=== PATIENT | male | born 1975 | race African-American/Black ===

== ENCOUNTER 2017-10-07 12:34 | Inpatient (IN) | payer OTHER ==
[~2017-10-07] VITALS: Ht 185.4 cm; Wt 143.8 kg
--- NOTE | 2017-10-07 12:40 | NUR ---
BBPA FROM [facility]: LEFT FOOT WOUND EVAL. NAD NOTED, VSS, RESP AND EVEN UNLABORED, SKIN DRY AND WARM, AT BS.
--- NOTE | 2017-10-07 12:46 | NUR ---
EKG DUPLICATE ORDER.
[2017-10-07 13:40] LABS: BASOPHILS % (AUTO) 0.4 % (0.0-2.0); EOSINOPHILS # (AUTO) 0.6 /CMM (0.0-0.7); EOSINOPHILS % (AUTO) 9.6 % (0.0-6.0); HEMATOCRIT 38 % (39-51); HEMOGLOBIN 11.7 g/dL (13.5-17.5); LYMPHOCYTES # (AUTO) 2.4 /CMM (0.8-4.8); LYMPHOCYTES % (AUTO) 36.8 % (20.0-44.0); MEAN CORPUSCULAR HEMOGLOBIN 24 PG (26.0-33.0); MEAN CORPUSCULAR HGB CONC 31 g/dl (31.0-36.0); MEAN CORPUSCULAR VOLUME 78 fL (80-96); MONOCYTES # (AUTO) 0.7 /CMM (0.1-1.30); MONOCYTES % (AUTO) 11.5 % (2.0-12.0); NEUTROPHILS # (AUTO) 2.8 /CMM (1.8-8.9); NEUTROPHILS % (AUTO) 41.7 % (43.0-81.0); PLATELET COUNT (AUTO) 286 /CMM (150-450); RDW COEFFICIENT OF VARIATION 13.9 (11.5-15.0); RED BLOOD CELL COUNT(AUTO) 4.88 MIL/uL (4.5-6.0); WHITE BLOOD COUNT (AUTO) 6.5 K/uL (4.3-11.0)
[2017-10-07 13:51] LABS: CALCIUM, SERUM 8.7 mg/dL (8.5-10.1); CARBON DIOXIDE 31 mmol/L (21-32); CHLORIDE 104 mmol/L (98-107); CREATININE 0.9 mg/dL (0.6-1.3); GLUCOSE 89 mg/dL (74-106); POTASSIUM 3.6 mmol/L (3.5-5.1); SODIUM SERUM 139 mmol/L (136-145); UREA NITROGEN, BLOOD 10 mg/dL (7-18)
[2017-10-07 13:55] LABS: INR 1.12 (0.87-1.13); PROTHROMBIN TIME 11.6 SECS (9.5-12.7)
[2017-10-07 13:59] LABS: TROPONIN I < 0.017 ng/mL (0.00-0.056)
[2017-10-07] MEDS ORDERED: FURO20TA4 PO (14:02)
[2017-10-07] MEDS ORDERED: METO25TA3 PO (14:02)
[2017-10-07] MEDS ORDERED: LITH300T PO (14:02)
[2017-10-07] MEDS ORDERED: TIMO5DRO4 EACHEYE (14:02)
[2017-10-07] MEDS ORDERED: HYDR-548 PO (14:02)
[2017-10-07] MEDS ORDERED: ALBU18HF2 IH (14:02)
[2017-10-07] MEDS ORDERED: HYDR-3976 PO (14:02)
[2017-10-07] MEDS ORDERED: RIVA10TA PO (14:02)
[2017-10-07] MEDS ORDERED: ATOR10TA PO (14:02)
[2017-10-07] MEDS ORDERED: FERR-58 PO (14:02)
[2017-10-07] MEDS ORDERED: FLUT16SP NS (14:02)
[2017-10-07] MEDS ORDERED: GABA-534 PO (14:02)
[2017-10-07] MEDS ORDERED: ESCI10TA PO (14:02)
[2017-10-07] MEDS ORDERED: LEVE250T2 PO (14:02)
[2017-10-07] MEDS ORDERED: PHEN100C4 PO (14:02)
[2017-10-07] MEDS ORDERED: NYST15OI TP (14:02)
[2017-10-07] MEDS ORDERED: DIPH25CA46 PO (14:02)
[2017-10-07] MEDS ORDERED: DORZ10DR8 EACHEYE (14:02)
[2017-10-07] MEDS ORDERED: LATA2.5D7 EACHEYE (14:02)
[2017-10-07] MEDS ORDERED: RISP0.253 PO (14:02)
[2017-10-07] MEDS ORDERED: BIMA2.5D5 EACHEYE (14:02)
[2017-10-07] MEDS ORDERED: MIRT45TA5 PO (14:02)
[2017-10-07] MEDS ORDERED: CODE118S2 PO (14:02)
[2017-10-07 14:03] LABS: B-TYPE NATRIURETIC PEPTIDE 19 PG/ML (0-125)
--- NOTE | 2017-10-07 14:15 | NUR ---
REPORT GIVEN TO DERICK.
--- NOTE | 2017-10-07 14:20 | NUR ---
RECEIVED REPORT FROM ER
[2017-10-07] MEDS ORDERED: HYDROMORPHONE INJ 2 MG/ML DISP.SYRIN IV PRN (14:30)
[2017-10-07] MEDS ORDERED: ENOXAPARIN SODIUM 40 MG/0.4 ML DISP.SYRIN SQ SCH (14:30)
[2017-10-07] MEDS ORDERED: Z GUARD REMEDY 2 OZ OINT TP PRN (14:30)
[2017-10-07] MEDS ORDERED: ZOLPIDEM TARTRATE 5 MG TABLET PO PRN (14:30)
[2017-10-07] MEDS ORDERED: CODEINE/PROMETHAZINE HCL 5 ML UDC PO PRN (14:30)
[2017-10-07] MEDS ORDERED: MAGNESIUM HYDROXIDE 30 ML UDC PO PRN (14:30)
[2017-10-07] MEDS ORDERED: ONDANSETRON HCL/PF 4 MG/2 ML VIAL IVP PRN (14:30)
[2017-10-07] MEDS ORDERED: ACETAMINOPHEN 325 MG TABLET PO PRN (14:30)
[2017-10-07] MEDS ORDERED: MAG HYDROX/AL HYDROX/SIMETH 30 ML UDC PO PRN (14:30)
[2017-10-07 14:57] VITALS: BP 127/79
--- NOTE | 2017-10-07 15:00 | NUR ---
PATIENT ARRIVED TO UNIT. WILL ASSESS AND MONITOR PATIENT
[2017-10-07 16:00] VITALS: BP 127/79
--- NOTE | 2017-10-07 16:00 | NUR ---
PATIENT VERBALIZE SUICIDAL THOUGHTS. ADY HERNANDEZ AND CHARGE NURSE MADE AWARE. PSYCH CONSULT ORDERED. SITTER AT BEDSIDE FOR SAFETY
[2017-10-07] MEDS: DORZOLAMIDE OPTH 2% 10 ML BOTTLE EACHEYE SCH ×2 (17:00→17:49)
[2017-10-07] MEDS ORDERED: RIVAROXABAN 10 MG TABLET PO SCH (17:00)
[2017-10-07] MEDS: NYSTATIN OINT 100000 UNIT/G 15 GM TUBE TP SCH (17:00)
--- NOTE | 2017-10-07 17:30 | NUR ---
PHARMACY NOTIFIED THAT WE DON'T HAVE ENOUGH RISPERDAL IN OMNICELL. PHARMACY WILL REFILL
--- NOTE | 2017-10-07 17:30 | NUR ---
RN ADMITTING NOTES PATIENT ARRIVED TO UNIT FROM EMERGENCY ROOM. VITAL SIGNS ARE STABLE. NO SIGNS AND SYMPTOMS OF DISTRESS. PATIENT IS ALERT AND ORIENTED TO NAME PLACE AND TIME. SUICIDAL WITH NO PLAN. PAIN LEVEL 8/10 IN CHEST AND BACK. MIDLINE IN INTACT AND PATENT. BED IN LOW POSITION, LOCKED AND TWO SIDE RAILS ARE UP. CALL LIGHT WITHIN REACH FOR SAFETY. WILL CONTINUE TO ASSESS AND MONITOR PATIENT
[2017-10-07] MEDS: TIMOLOL 0.5% SOLN OPHTH 5 ML BOTTLE EACHEYE SCH (17:42)
[2017-10-07] MEDS: diphenhydrAMINE HCL 25 MG CAPSULE PO SCH (17:43)
[2017-10-07] MEDS: LITHIUM CARBONATE (300 MG CAP) 300 MG CAPSULE PO SCH (17:43)
[2017-10-07] MEDS: FERROUS SULFATE (325 MG) 325 MG/TAB TABLET PO SCH (17:43)
[2017-10-07] MEDS: FUROSEMIDE 20 MG TABLET PO SCH (17:43)
[2017-10-07] MEDS: GABAPENTIN 300 MG CAPSULE PO SCH (17:44)
--- NOTE | 2017-10-07 17:45 | NUR ---
PATIENT SUICIDAL PLAN IS TO :SLAM MY HEAD AGAINST THE GLASS AND CUT MY THROAT". CHARGE NURSE MADE AWARE. PSYCH CONSULT PENDING. SITTER AT BEDSIDE
[2017-10-07] MEDS: HYDROCODONE/APAP 5/325MG 1 EACH TABLET PO PRN (17:54)
[2017-10-07] MEDS ORDERED: risperiDONE 0.25 MG TABLET PO SCH (18:00)
[2017-10-07] MEDS ORDERED: MIRTAZAPINE 45 MG TABLET PO SCH (18:00)
--- NOTE | 2017-10-07 18:57 | NUR ---
RN CLOSING NOTES PATIENT IS ALERT AND ORIENTED TO NAME PLACE AND TIME. NO SIGNS AND SYMPTOMS OF DISTRESS. STABLE DURING MY SHIFT. ALL PATIENT CARE ANTICIPATED AND ATTENDED. MIDLINE IN INTACT AND PATENT. BED IN LOW POSITION, LOCKED AND TWO SIDE RAILS ARE UP. CALL LIGHT WITHIN REACH FOR SAFETY. WILL ENDORSER TO PATIENT FINANCIAL SPECIALIST NURSE.
[2017-10-07] MEDS ORDERED: risperiDONE 1 MG TABLET PO SCH ×2 (19:00)
[2017-10-07] MEDS ORDERED: ALBUTEROL FS 2.5 MG/0.5 ML VIAL.NEB NEB PRN (19:30)
--- NOTE | 2017-10-07 19:30 | NUR ---
RN OPENING NOTES PATIENT IS SLEEPING IN THE BED, EASY TO AROUSE, ALERT AND ORIENTED X3. VS STABLE. NO SOB NOTED. IV ACCESS ON MIDLINE DOLORES HL PATENT AND INTACT, FLUSHED WELL NS. BED IN LOW AND LOCKED POSITION POSITION. SIDE RAILS X2. CALL LIGHT WITHIN EASY REACH. WILL CONTINUE TO MONITOR AND ASSESS DURING THE SHIFT.
[2017-10-07 20:00] VITALS: BP 114/60
[2017-10-07] MEDS ORDERED: BIMATOPROST 2.5 ML DROPS OP SCH (22:00)
[2017-10-07] MEDS ORDERED: PHENYTOIN EXTENDED RELEASE 100 MG CAPSULE PO SCH (22:00)
[2017-10-07] MEDS ORDERED: LATANOPROST EYE DROP 0.005% 2.5 ML BOTTLE EACHEYE SCH (22:00)
[2017-10-07] MEDS ORDERED: ATORVASTATIN 10 MG TABLET PO SCH (22:00)
[2017-10-08] VITALS: BP 120/60
[2017-10-08 04:00] VITALS: BP 115/60
[2017-10-08 04:37] VITALS: BP 115/60
--- NOTE | 2017-10-08 06:53 | NUR ---
RN CLOSING NOTES PATIENT IS SLEEPING IN THE BED, EASY TO AROUSE, ALERT AND ORIENTED X3. VS STABLE. RESPIRATIONS EVEN AND UNLABORED. NO SOB NOTED. IV ACCESS ON MIDLINE DOLORES HL PATENT AND INTACT, FLUSHED WELL WITH NS. ALL NEEDS ARE MET AND MEDICATIONS GIVEN PER MD ORDER. BED IN LOW AND LOCKED POSITION POSITION. SIDE RAILS X2. CALL LIGHT WITHIN EASY REACH. WILL ENDORSE TO RN DAY SHIFT FOR CONTINUITY OF CARE.
--- NOTE | 2017-10-08 07:22 | NUR ---
RN OPEN NOTES RECEIVED REPORT FROM LITHOGRAPH OPERATOR NURSE. PATIENT IS IN BED, AWAKE. ALERT AND ORIENTED TO NAME, PLACE AND TIME. NO SIGN AND SYMPTOMS OF DISTRESS. BED IN LOW POSITION, LOCKED AND TWO SIDE RAILS ARE UP. CALL LIGHT WITHIN REACH FOR SAFETY. WILL CONTINUE TO MONITOR AND ASSESS PATIENT THROUGH OUT MY SHIFT
[2017-10-08 07:48] LABS: BASOPHILS % (AUTO) 0.4 % (0.0-2.0); EOSINOPHILS # (AUTO) 0.6 /CMM (0.0-0.7); EOSINOPHILS % (AUTO) 9.4 % (0.0-6.0); HEMATOCRIT 38 % (39-51); LYMPHOCYTES % (AUTO) 31.8 % (20.0-44.0); MEAN CORPUSCULAR HEMOGLOBIN 24 PG (26.0-33.0); MEAN CORPUSCULAR HGB CONC 31 g/dl (31.0-36.0); MEAN CORPUSCULAR VOLUME 78 fL (80-96); MONOCYTES # (AUTO) 0.6 /CMM (0.1-1.30); MONOCYTES % (AUTO) 9.7 % (2.0-12.0); NEUTROPHILS % (AUTO) 48.7 % (43.0-81.0); PLATELET COUNT (AUTO) 253 /CMM (150-450); RDW COEFFICIENT OF VARIATION 14.9 (11.5-15.0); WHITE BLOOD COUNT (AUTO) 6.2 K/uL (4.3-11.0)
[2017-10-08 08:00] VITALS: BP 117/61
[2017-10-08] MEDS: TIMOLOL 0.5% SOLN OPHTH 5 ML BOTTLE EACHEYE SCH (08:53)
[2017-10-08] MEDS: DORZOLAMIDE OPTH 2% 10 ML BOTTLE EACHEYE SCH ×2 (08:54→12:05)
[2017-10-08] MEDS: diphenhydrAMINE HCL 25 MG CAPSULE PO SCH ×2 (08:55→12:05)
[2017-10-08] MEDS: GABAPENTIN 300 MG CAPSULE PO SCH ×2 (08:56→12:05)
[2017-10-08] MEDS: LITHIUM CARBONATE (300 MG CAP) 300 MG CAPSULE PO SCH ×2 (08:56→12:05)
[2017-10-08] MEDS: FUROSEMIDE 20 MG TABLET PO SCH (08:56)
[2017-10-08] MEDS: FERROUS SULFATE (325 MG) 325 MG/TAB TABLET PO SCH ×2 (08:56→12:05)
[2017-10-08] MEDS: NYSTATIN OINT 100000 UNIT/G 15 GM TUBE TP SCH ×2 (08:57→12:05)
[2017-10-08] MEDS ORDERED: METOPROLOL SUCCINATE 25 MG TAB.SR.24H PO SCH (09:00)
[2017-10-08] MEDS ORDERED: ESCITALOPRAM OXALATE (10 MG) 10 MG TABLET PO SCH (09:00)
[2017-10-08] MEDS ORDERED: LEVETIRACETAM (250 MG) 250 MG TABLET PO SCH (09:00)
[2017-10-08] MEDS ORDERED: FLUTICASONE PROPIONATE 16 GM BOTTLE NS SCH (09:00)
--- NOTE | 2017-10-08 09:00 | NUR ---
[facility]
[2017-10-08] MEDS: HYDROCODONE/APAP 5/325MG 1 EACH TABLET PO PRN (10:40)
--- NOTE | 2017-10-08 10:41 | NUR ---
PAIN LEVEL 9/10 ADMINISTERED NORCO. BLOOD PRESSURE 110/64 HEART RATE 63 OXYGEN SAT 97%
[2017-10-08 11:38] LABS: CALCIUM, SERUM 8.6 mg/dL (8.5-10.1); CREATININE 0.9 mg/dL (0.6-1.3); MAGNESIUM 1.7 mg/dL (1.8-2.4); PHOSPHORUS 2.7 mg/dL (2.5-4.9); POTASSIUM 3.5 mmol/L (3.5-5.1)
[2017-10-08 11:39] LABS: PHENYTOIN (DILANTIN) 14.5 ug/ml (10.0-20.0)
--- NOTE | 2017-10-08 13:41 | NUR ---
FRONT OFFICE SPEC NOTES PATIENT DISCHARGE'S ORDER RECEIVED AND CARRIED OUT. NO SIGNS AND SYMPTOMS OF DISTRESS OR CHEST PAIN. DENIED ANY SUICIDAL IDEATION. ALL PERSONAL BELONGING WITH PATIENT AT TIME OF DISCHARGE. CALLED TO SHUKRI JAMES FOR REPORT; REPORT GAVE TO BOBBI, PATIENT IS GOING TO ROOM 124. DISCHARGE INSTRUCTION GAVE TO PATIENT AND BOARDING CARE FACILITY. PATIENT VERBALIZED UNDERSTANDING. BOTH DISCHARGE FORM AND BELONGING LIST FORM SIGNED BY PATIENT AND PLACED IN CHART. PRESCRIPTION GAVE TO PATIENT. MIDLINE REMOVED. ID BAND REMOVED. PATIENT WAS TRANSPORTED TO THE CARE FACILITY VIA AMBULANCE AND 2 hot box spotter PROVIDED BY [facility].
[2017-10-09] MEDS ORDERED: ESCITALOPRAM OXALATE (10 MG) 10 MG TABLET PO SCH (09:00)
== END 2017-10-08 13:35 | disposition home or self-care (01) | DRG 194 ==
LOC: ER 12:40 → TELE 14:33 → MED 10-08 09:40
PROVIDERS: ADMIT Nurse Practitioner Acute Care; ATTEND Nurse Practitioner Acute Care
PROC: 05H633Z Insertion of Infusion Device into Left Subclavian Vein, Percutaneous Approach (ICD-10-PCS; principal; 2017-10-07)
DX: I11.0 Hypertensive heart disease with heart failure (principal); R45.851 Suicidal ideations; E88.81 Metabolic syndrome and other insulin resistance; E44.1 Mild protein-calorie malnutrition; I10 Essential (primary) hypertension; F17.200 Nicotine dependence, unspecified, uncomplicated; D50.9 Iron deficiency anemia, unspecified; M94.0 Chondrocostal junction syndrome [Tietze]; I50.32 Chronic diastolic (congestive) heart failure; I69.354 Hemiplegia and hemiparesis following cerebral infarction affecting left non-dominant side; Z68.41 Body mass index [BMI] 40.0-44.9, adult; Z86.718 Personal history of other venous thrombosis and embolism; Z99.3 Dependence on wheelchair; K46.9 Unspecified abdominal hernia without obstruction or gangrene; Z91.018 Allergy to other foods; Z79.899 Other long term (current) drug therapy; Z91.041 Radiographic dye allergy status; E66.01 Morbid (severe) obesity due to excess calories; F31.9 Bipolar disorder, unspecified; J44.9 Chronic obstructive pulmonary disease, unspecified; I70.0 Atherosclerosis of aorta; G47.33 Obstructive sleep apnea (adult) (pediatric); G40.909 Epilepsy, unspecified, not intractable, without status epilepticus
CPT/HCPCS: 36415; 71010-TC; 80048-TC; 80061-TC; 80185-TC; 83735-TC; 83880; 84100-TC; 84484-TC; 85025-TC; 85730-TC; 87081-TC; 93307-TC; A4606; Q0163; Z7610